=== PATIENT | female | born 1975 | race Caucasian/White ===

== ENCOUNTER 2016-12-18 15:39 | Emergency (ER) | payer BC, OTHER ==
[~2016-12-18] VITALS: Ht 160 cm; Wt 70.0 kg
[2016-12-18 15:44] VITALS: BP 145/75; PULSE 88; RESP 15; TEMP 98.3; O2SAT 100
[2016-12-18] MEDS ORDERED: SODIUM CHLOR 0.9% 1000 ML INJ 1,000 ML IV SCH (15:56)
[2016-12-18] MEDS ORDERED: FERR325T PO (15:58)
[2016-12-18] MEDS ORDERED: METO25TA6 PO (15:58)
[2016-12-18 16:18] LABS: AUTOMATED NEUTROPHIL # 12.6 TH/MM3 (1.8-7.7); BASOPHIL % 0.3 % (0.0-2.0); EOSINOPHIL % 0.1 % (0.0-4.0); HEMATOCRIT 37.8 % (35.0-46.0); HEMO FLAGS DIFF FINAL; LYMPH % 12.5 % (9.0-44.0); LYMPHOCYTE # 1.9 TH/MM3 (1.0-4.8); MEAN CELL VOLUME 96.5 FL (80.0-100.0); MEAN CORPUSCULAR HEMOGLOBIN 33.1 PG (27.0-34.0); MEAN CORPUSCULAR HGB CONC 34.3 % (32.0-36.0); MONO % 5.5 % (0.0-8.0); NEUT % 81.6 % (16.0-70.0); PLATELET COUNT 334 TH/MM3 (150-450); RED BLOOD COUNT 3.91 MIL/MM3 (4.00-5.30); RED CELL DISTRIBUTION WIDTH 13.7 % (11.6-17.2); WHITE BLOOD COUNT 15.4 TH/MM3 (4.0-11.0)
--- NOTE | 2016-12-18 16:36 | PD ---
HPI Chief Complaint: Complaint Time Seen by Provider: 16:32 Travel History International Travel<30 days: No Contact w/Intl Traveler<30days: No Traveled to known affect area: No History of Present Illness HPI 41-year-old female that presents to the ED for evaluation of hematuria. Per patient is started today. Per patient she woke up with some lower back pain and some pressure in her bladder which didn't think much of it. Per patient she went to [place] with family and when she was over there she noticed that she had to go to the bathroom a lot. Per patient she had to urinate. Per patient she started to note that she had some blood in her urine. Per patient she thought maybe was related to her. Although she will be 2 weeks early. Per patient she could've tamponade to see maybe double elbow that. Per patient she noted that after she what she still had bloods that she took the tampon off and she noticed that she had no blood in there. She noted again that when she urinated she had some blood. Last and she he there were pieces of blood. Per patient the blood seems to be getting better but she still has some. Per patient initially was more red blood now is more like documented flood. She denies any dysuria but she does state having some pressure and urgency. She denies any history of kidney stones. No history of UTIs. Denies any vaginal discharge or bleeding. No . No trauma. No history of cancer. Per patient the pain is not really painful more like an ache. Per patient is 2 out of 10. Denies any fevers, chills or sweats. No nausea or vomiting. PFSH Past Medical History Medical History: Denies Significant Hx ?: Not LMP: 12/03/2016 Social History Alcohol Use: No Tobacco Use: No Substance Use: No Allergies-Medications (Allergen,Severity, Reaction): Coded Allergies: No Known Allergies (Verified , 12/18/16) Reported Meds & Prescriptions Reported Meds & Active Scripts Active Pyridium (Phenazopyridine HCl) 100 Mg Tab 100 Mg PO Q8HR Cipro (Ciprofloxacin HCl) 500 Mg Tab 500 Mg PO BID [address] (Diclofenac Sodium) 75 Mg Tabdr 75 Mg PO BID PRN Reported Ferrous Sulfate 325 Mg Tab 325 Mg PO DAILY Metoprolol Succinate ER 24 HR (Metoprolol Succinate) 25 Mg Tab 12.5 Mg PO DAILY Review of Systems Except as stated in HPI: all other systems reviewed are Neg Physical Exam Narrative GENERAL: SKIN: Warm and dry. HEAD: Atraumatic. Normocephalic. EYES: Pupils equal and round. No scleral icterus. No injection or drainage. ENT: No nasal bleeding or discharge. Mucous membranes pink and moist. NECK: Trachea midline. No JVD. CARDIOVASCULAR: Regular rate and rhythm. No murmurs, S3, S4. RESPIRATORY: No accessory muscle use. Clear to auscultation. Breath sounds equal bilaterally. GASTROINTESTINAL: Abdomen soft, non-tender, nondistended. Hepatic and splenic margins not palpable. MUSCULOSKELETAL: Extremities without clubbing, cyanosis, or edema. No obvious deformities. No CVA tenderness. NEUROLOGICAL: Awake and alert. No obvious cranial nerve deficits. Motor grossly within normal limits. Five out of 5 muscle strength in the arms and legs. Normal speech. PSYCHIATRIC: Appropriate mood and affect; insight and judgment normal. Data Data Last Documented VS Vital Signs Date Time Temp Pulse Resp B/P Pulse Ox O2 Delivery O2 Flow Rate FiO2 12/18/16 15:44 98.3 88 15 145/75 100 Orders Urinalysis - C+S If Indicated (12/18/16 15:42) Ed Urine Pregnancytest Poc (12/18/16 15:48) Complete Blood Count With Diff (12/18/16 15:56) Basic Metabolic Panel (Bmp) (12/18/16 15:56) Ct Abd/Pel W/O Iv Contrast (12/18/16 15:56) Sodium Chlor 0.9% 1000 Ml Inj (Ns 1000 M (12/18/16 15:56) Urine Culture (12/18/16 15:41) Ciprofloxacin (Cipro) (12/18/16 17:15) Labs Laboratory Tests Test 12/18/16 12/18/16 15:41 16:03 Urine Color LIGHT-YELLOW Urine Turbidity CLEAR Urine pH 6.5 Urine Specific [place] 1.002 Urine Protein TRACE mg/dL Urine Glucose (UA) NEG mg/dL Urine Ketones NEG mg/dL Urine Occult Blood MOD Urine Nitrite NEG Urine Bilirubin NEG Urine Urobilinogen LESS THAN 2.0 MG/DL Urine Leukocyte Esterase MOD Urine RBC 1 /hpf Urine WBC 11 /hpf Urine Bacteria MOD /hpf Microscopic Urinalysis Comment CULTURE INDICATED White Blood Count 15.4 TH/MM3 Red Blood Count 3.91 MIL/MM3 Hemoglobin 12.9 GM/DL Hematocrit 37.8 % Mean Corpuscular Volume 96.5 FL Mean Corpuscular Hemoglobin 33.1 PG Mean Corpuscular Hemoglobin 34.3 % Concent Red Cell Distribution Width 13.7 % Platelet Count 334 TH/MM3 Mean Platelet Volume 7.5 FL Neutrophils (%) (Auto) 81.6 % Lymphocytes (%) (Auto) 12.5 % Monocytes (%) (Auto) 5.5 % Eosinophils (%) (Auto) 0.1 % Basophils (%) (Auto) 0.3 % Neutrophils # (Auto) 12.6 TH/MM3 Lymphocytes # (Auto) 1.9 TH/MM3 Monocytes # (Auto) 0.9 TH/MM3 Eosinophils # (Auto) 0.0 TH/MM3 Basophils # (Auto) 0.0 TH/MM3 CBC Comment DIFF FINAL Differential Comment Sodium Level 139 MEQ/L Potassium Level 3.5 MEQ/L Chloride Level 106 MEQ/L Carbon Dioxide Level 27.9 MEQ/L Anion Gap 5 MEQ/L Blood Urea Nitrogen 9 MG/DL Creatinine 0.79 MG/DL Estimat Glomerular Filtration 80 ML/MIN Rate Random Glucose 101 MG/DL Calcium Level 8.7 MG/DL MDM Medical Decision Making Medical Screen Exam Complete: Yes Emergency Medical Condition: Yes Medical Record Reviewed: Yes Interpretation(s) CBC & BMP Diagram 12/18/16 16:03 Urine did show blood as well as some bacteria and mucus is trace. Last Impressions Abdomen/Pelvis CT 12/18/16 1556 Signed Impressions: Service Date/Time: Sunday, December 18, 2016 16:29 - CONCLUSION: 1. No definite abnormality to explain the patient's right flank pain identified. Specifically , the appendix is normal and no renal stones are evident. Tenzin Song MD Differential Diagnosis Kidney stone versus hematuria versus pyelonephritis versus UTI versus cystitis Narrative Course 41-year-old female that presents to the ED for evaluation of hematuria. Patient was properly examined and was found to have signs and symptoms which appear to be consistent with possible kidney stone versus pyelonephritis. Labs and imaging ordered. IV fluids given. Labs and imaging showed deliverable sick as well as blood in the urine and signs of infection. CT was negative for acute specifically no stone or mass. At this time I do believe that this is likely infectious. Likely early pyonephritis from back pain. She can also already passed the stone and now she has an infection. Patient will be treated for this with Cipro. Patient was given first dose here. Patient was given pyridium and Cipro to help with symptoms. She will be given a prescription for diclofenac sodium for pain to use as needed. Close follow with PCP. See ED for any worsening symptoms. Patient was told results and agrees with plan. Diagnosis Primary Impression: Pyelonephritis Additional Impression: Hematuria Patient Instructions: General Instructions Additional Instructions: Take medications as prescribed. Follow-up with PCP. See ED if worsening symptoms. Drink plenty of fluids. Med/Other Pt SpecificInfo: Prescription(s) given Scripts Phenazopyridine (Pyridium)100 Mg [id number] Mg PO Q8HR #12 TAB Ref 0 Prov:Adarsh Noonan MD 12/18/16 Ciprofloxacin (Cipro)500 Mg [id number] Mg PO BID 10 Days Prov:Adarsh Noonan MD 12/18/[address] 75 Mg Tabdr75 Mg PO BID PRN (PAIN SCALE 1 TO 10) #20 TAB Prov:Adarsh Noonan MD 12/18/16 Disposition: 01 DISCHARGE HOME Condition: Stable Jem Srivastava Dec 18, 2016 16:36
[2016-12-18 16:44] LABS: BICARBONATE 27.9 MEQ/L (21.0-32.0); POTASSIUM 3.5 MEQ/L (3.5-5.1)
--- NOTE | 2016-12-18 16:57 | RADRPT ---
EXAM DATE/TIME: 12/18/2016 16:29 [facility] COMPARISON: No previous studies available for comparison. INDICATIONS : Low pelvic and right flank pain. ORAL CONTRAST: No oral contrast ingested. RADIATION DOSE: 14.36 CTDIvol (mGy) MEDICAL HISTORY : None documented. SURGICAL HISTORY : Inguinal hernia repair. Umbilical hernia repair. ENCOUNTER: Initial ACUITY: 1 day PAIN SCALE: 7/10 LOCATION: Right flank TECHNIQUE: Volumetric scanning of the abdomen and pelvis was performed. Using automated exposure control and ad justment of the mA and/or kV according to patient size, radiation dose was kept as low as reasonably achievable to obtain optimal diagnostic quality images. FINDINGS: LOWER LUNGS: The visualized lower lungs are clear. LIVER: Homogeneous density without lesion. There is no dilation of the biliary tree. No calcified gallston es. SPLEEN: Normal size without lesion. PANCREAS: Within normal limits. KIDNEYS: Normal in size and shape. There is no mass, stone, or hydronephrosis. ADRENAL GLANDS: Within normal limits. VASCULAR: There is no aortic aneurysm. BOWEL/MESENTERY: The stomach, small bowel, and colon demonstrate no acute abnormality. There is no free intraperitone al air or fluid. The appendix is visualized and is normal in appearance. ABDOMINAL WALL: Within normal limits. RETROPERITONEUM: There is no lymphadenopathy. BLADDER: No wall thickening or mass. REPRODUCTIVE: Within normal limits. INGUINAL: There is no lymphadenopathy or hernia. MUSCULOSKELETAL: Within normal limits for patient age. CONCLUSION: 1. No definite abnormality to explain the patient's right flank pain identified. Specifically, the ap pendix is normal and no renal stones are evident. Tenzin Song MD on December 18, 2016 at 16:50 Board Certified Radiologist. This report was verified electronically.
[2016-12-18 17:00] LABS: BACTERIA, URINE MOD /hpf; BLOOD, URINE MOD (NEG); COMMENT (UR) CULTURE INDICATED; CULTURE IF INDICATED CULTURE INDICATED; GLUCOSE,URINE NEG (NEG); KETONE, URINE NEG (NEG); NITRITE,URINE NEG (NEG); PH, URINE 6.5 (5.0-8.5); URINE COLOR LIGHT-YELLOW (YELLW/STRAW)
[2016-12-18] MEDS ORDERED: CIPROFLOXACIN 500 MG TAB PO ONE (17:15)
[2016-12-18] MEDS ORDERED: TRAM50TA PO (17:19)
[2016-12-18] MEDS ORDERED: PHEN0.4T PO (17:19)
[2016-12-18] MEDS ORDERED: CIPR-9 PO (17:19)
[2016-12-18] MEDS ORDERED: DICL75TA PO (17:19)
== END 2016-12-18 18:32 | disposition home or self-care (01) ==
LOC: NEPC 15:39
DX: N12 Tubulo-interstitial nephritis, not specified as acute or chronic (principal); R31.9 Hematuria, unspecified
CPT/HCPCS: 74176; 80048; 81001; 84703; 85025; 87086; 96360; 96361; 99284; J7030

== ENCOUNTER 2018-03-31 08:38 | Emergency (ER) | payer BC ==
[~2018-03-31] VITALS: Ht 160 cm; Wt 72.0 kg
[~2018-03-31 08:38] MED LIST: CIPR-9 PO; DICL75TA PO; FERR325T PO; METO1TAB42 PO; PHEN0.4T PO
[2018-03-31 08:44] VITALS: BP 162/80; PULSE 71; RESP 20; TEMP 97.5; O2SAT 100
[2018-03-31 09:22] LABS: HEMATOCRIT 32.7 % (35.0-46.0); HEMOGLOBIN 10.5 GM/DL (11.6-15.3); MEAN CELL VOLUME 78.9 FL (80.0-100.0); MEAN CORPUSCULAR HEMOGLOBIN 25.2 PG (27.0-34.0); MEAN CORPUSCULAR HGB CONC 31.9 % (32.0-36.0); MEAN PLATELET VOLUME 7.2 FL (7.0-11.0); PLATELET COUNT 452 TH/MM3 (150-450); RED BLOOD COUNT 4.15 MIL/MM3 (4.00-5.30); RED CELL DISTRIBUTION WIDTH 17.4 % (11.6-17.2); WHITE BLOOD COUNT 7.8 TH/MM3 (4.0-11.0)
[2018-03-31 09:36] LABS: BICARBONATE 26.8 MEQ/L (21.0-32.0); CALCIUM 9.3 MG/DL (8.5-10.1); CREATININE 0.66 MG/DL (0.50-1.00); PROTHROMBIN TIME - PATIENT 9.7 SEC (9.8-11.6)
--- NOTE | 2018-03-31 10:54 | RADRPT ---
EXAM DATE/TIME: 03/31/2018 09:41 [facility] COMPARISON: No previous studies available for comparison. INDICATIONS : Pelvic bleeding. MEDICAL HISTORY : Hypertension. Anemia. SURGICAL HISTORY : Cardiac catheterization. Hernia repair. ENCOUNTER: Initial ACUITY: 3 weeks PAIN SCORE: 0/10 LOCATION: Bilateral pelvis MEASUREMENTS: UTERUS: 10.8 x 5.4 x 6.0 cm ENDOMETRIAL STRIPE: 10 mm RIGHT OVARY: 2.1 x 1.3 x 2.2 cm LEFT OVARY: 4.6 x 2.3 x 3.0 cm FINDINGS: UTERUS: The myometrium has homogeneous echotexture without mass. RIGHT OVARY: Ovary contains no mass or significant cystic lesion. LEFT OVARY: Ovary contains no mass or significant cystic lesion. MISCELLANEOUS: No free fluid. CONCLUSION: 1. No acute findings. Small follicular cysts in the ovaries. Moses Schmitt MD on March 31, 2018 at 10:51 Board Certified Radiologist. This report was verified electronically.
--- NOTE | 2018-03-31 10:57 | PD ---
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 Reports last menstruation was approximately 4 months prior. Since then she has had menometrorrhagia with for the past 10 days or so heavy vaginal bleeding with clots. She reports using 10 super tampons daily. At times the bleeding soaks through the super tampons and pads. Overnight bleeding soaked the wounds in bed. She reports nausea and dizziness today. PFSH Past Medical History Anemia: Yes Cardiac Catheterization: Yes Hypertension: Yes ?: Not LMP: 03/07/18 Past Surgical History Abdominal Surgery: Yes (HERNIA REPAIR X 2) Social History Alcohol Use: Yes (OCCASSIONAL) Tobacco Use: No Substance Use: No Allergies-Medications (Allergen,Severity, Reaction): Coded Allergies: No Known Allergies (Verified , 12/18/16) Reported Meds & Prescriptions Reported Meds & Active Scripts Active Medroxyprogesterone Acetate 10 Mg Tab 10 Mg PO DAILY Start day 16 Pyridium (Phenazopyridine HCl) 100 Mg Tab 100 Mg PO Q8HR Cipro (Ciprofloxacin HCl) 500 Mg Tab 500 Mg PO BID [address] (Diclofenac Sodium) 75 Mg Tabdr 75 Mg PO BID PRN Reported Metoprolol Succinate ER 24 HR (Metoprolol Succinate) 25 Mg Tab 12.5 Mg PO DAILY Review of Systems Except as stated in HPI: all other systems reviewed are Neg General / Constitutional: No: Fever Physical Exam Narrative GENERAL: 42-year-old female pleasant well-nourished well-developed Vital Signs Date Time Temp Pulse Resp B/P (MAP) Pulse Ox O2 Delivery O2 Flow Rate FiO2 03/31/18 08:44 97.5 71 20 162/80 (107) 100 SKIN: Warm and dry. HEAD: Atraumatic. Normocephalic. EYES: Pupils equal and round. No scleral icterus. No injection or drainage. ENT: No nasal bleeding or discharge. Mucous membranes pink and moist. NECK: Trachea midline. No JVD. CARDIOVASCULAR: Regular rate and rhythm. RESPIRATORY: No accessory muscle use. Clear to auscultation. Breath sounds equal bilaterally. GASTROINTESTINAL: Minimal tenderness in suprapubic abdomen and left lower quadrant. MUSCULOSKELETAL: Extremities without clubbing, cyanosis, or edema. No obvious deformities. NEUROLOGICAL: Awake and alert. No obvious cranial nerve deficits. Motor grossly within normal limits. Five out of 5 muscle strength in the arms and legs. Normal speech. PSYCHIATRIC: Appropriate mood and affect; insight and judgment normal. Data Data Last Documented VS Vital Signs Date Time Temp Pulse Resp B/P (MAP) Pulse Ox O2 Delivery O2 Flow Rate FiO2 03/31/18 11:53 82 133/68 (89) 100 03/31/18 08:44 97.5 20 Orders Orders Cbc No Diff, Includes Plts (03/31/18 09:02) Basic Metabolic Panel (Bmp) (03/31/18 09:02) Act Partial Throm Time (Ptt) (03/31/18 09:02) Prothrombin Time / Inr (Pt) (03/31/18 09:02) Us Pelvis Comp W Transvaginal (03/31/18 ) Urinalysis - C+S If Indicated (03/31/18 10:57) Electrocardiogram (03/31/18 ) Ed Discharge Order (03/31/18 11:40) Labs Laboratory Tests Test 03/31/18 09:05 03/31/18 11:00 White Blood Count 7.8 TH/MM3 Red Blood Count 4.15 MIL/MM3 Hemoglobin 10.5 GM/DL Hematocrit 32.7 % Mean Corpuscular Volume 78.9 FL Mean Corpuscular Hemoglobin 25.2 PG Mean Corpuscular Hemoglobin Concent 31.9 % Red Cell Distribution Width 17.4 % Platelet Count 452 TH/MM3 Mean Platelet Volume 7.2 FL Prothrombin Time 9.7 SEC Prothromb Time International Ratio 1.0 RATIO Activated Partial Thromboplast Time 24.5 SEC Blood Urea Nitrogen 10 MG/DL Creatinine 0.66 MG/DL Random Glucose 96 MG/DL Calcium Level 9.3 MG/DL Sodium Level 139 MEQ/L Potassium Level 4.6 MEQ/L Chloride Level 104 MEQ/L Carbon Dioxide Level 26.8 MEQ/L Anion Gap 8 MEQ/L Estimat Glomerular Filtration Rate 98 ML/MIN Urine Color COLORLESS Urine Turbidity CLEAR Urine pH 6.5 Urine Specific [place] 1.003 Urine Protein NEG mg/dL Urine Glucose (UA) NEG mg/dL Urine Ketones NEG mg/dL Urine Occult Blood LARGE Urine Nitrite NEG Urine Bilirubin NEG Urine Urobilinogen LESS THAN 2.0 MG/DL Urine Leukocyte Esterase NEG Urine RBC 2 /hpf Urine WBC LESS THAN 1 /hpf Urine Squamous Epithelial Cells <1 /hpf Urine Bacteria OCC /hpf Microscopic Urinalysis Comment CULT NOT INDICATED MDM Medical Decision Making Medical Screen Exam Complete: Yes Emergency Medical Condition: Yes Medical Record Reviewed: Yes Differential Diagnosis Anemia, cyst, incarcerated umbilical hernia, intraperitoneal hemorrhage Narrative Course CBC & BMP Diagram 03/31/18 09:05 Calcium Level 9.3 US shows no acute abnormality Pt reassessed at 1100. Results were discussed. Umbilical hernia examined: no defect in umbilical wall, no tenderness. Pt reiterated and augmented dizziness as a complaint. EKG added on. UA: no UTI EKG normal sinus, no ischemia d/w Dr Rodriguez, medroxyprogesterone prescription, call Dr. Buckner in the morning for appointment discharge Diagnosis Primary Impression: Vaginal bleeding Additional Impressions: Microcytic anemia Dizziness History of umbilical hernia repair Referrals: Jimmy Buckner MD call for appointment CALL TO MAKE AN APPOINTMENT FOR TOMORROW Med/Other Pt SpecificInfo: Prescription(s) given Scripts Medroxyprogesterone Acetate (Medroxyprogesterone Acetate) 10 Mg Tab 10 MG PO DAILY for Uterine bleeding, #10 TAB 0 Refills Start day 16 Prov: Tenzin Troy MD 03/31/18 Disposition: 01 DISCHARGE HOME Condition: Stable Tenzin Troy MD March 31, 2018 10:57
[2018-03-31] MEDS ORDERED: MEDR10TA7 PO (11:31)
[2018-03-31 11:35] LABS: BACTERIA, URINE OCC /hpf; BILIRUBIN, URINE NEG (NEG); BLOOD, URINE LARGE (NEG); GLUCOSE,URINE NEG (NEG); KETONE, URINE NEG (NEG); NITRITE,URINE NEG (NEG); PH, URINE 6.5 (5.0-8.5); SQUAMOUS EPITHELIAL CELL URINE <1 /hpf (0-5); URINE COLOR COLORLESS (YELLW/STRAW); URINE LEUKOCYTE ESTERASE NEG (NEG)
[2018-03-31 11:53] VITALS: BP 133/68
--- NOTE | 2018-04-02 08:53 | EKG ---
Date Performed: 03/31/2018 Time Performed: 11:11:52 PTAGE: 42 years EKG: Sinus rhythm NORMAL ECG NO PREVIOUS TRACING DOCTOR: Twyla Braun Interpretating Date/Time 04/02/2018 08:48:35
== END 2018-03-31 12:06 | disposition home or self-care (01) ==
LOC: NEPE 08:38
DX: N93.9 Abnormal uterine and vaginal bleeding, unspecified (principal); N83.209 Unspecified ovarian cyst, unspecified side; D50.9 Iron deficiency anemia, unspecified; R42 Dizziness and giddiness; K42.9 Umbilical hernia without obstruction or gangrene; R11.0 Nausea; I10 Essential (primary) hypertension; Z79.899 Other long term (current) drug therapy
CPT/HCPCS: 76830; 76856; 80048; 81001; 85027; 85610; 85730; 93005; 99285

== ENCOUNTER 2018-04-30 04:30 | Observation (INO) | payer BC ==
[2018-04-30] VITALS (7 sets, daily range): BP systolic 115–147; BP diastolic 59–85; PULSE 68–89; RESP 16–18; TEMP 98.1–98.9; O2SAT 99–100
[~2018-04-30 04:30] MED LIST changes: -FERR325T PO; +MEDR10TA7 PO
[2018-04-30] MEDS ORDERED: FERR325T18 PO (04:57)
[2018-04-30 05:26] LABS: AUTOMATED NEUTROPHIL # 8.5 TH/MM3 (1.8-7.7); BASOPHIL % 0.2 % (0.0-2.0); EOSINOPHIL # 0.1 TH/MM3 (0-0.4); EOSINOPHIL % 1.1 % (0.0-4.0); HEMATOCRIT 33.9 % (35.0-46.0); LYMPH % 15.4 % (9.0-44.0); LYMPHOCYTE # 1.7 TH/MM3 (1.0-4.8); MEAN CELL VOLUME 87.5 FL (80.0-100.0); MEAN CORPUSCULAR HEMOGLOBIN 28.5 PG (27.0-34.0); MEAN CORPUSCULAR HGB CONC 32.5 % (32.0-36.0); MEAN PLATELET VOLUME 7.2 FL (7.0-11.0); MONO % 7.4 % (0.0-8.0); MONOCYTE # 0.8 TH/MM3 (0-0.9); NEUT % 75.9 % (16.0-70.0); PLATELET COUNT 334 TH/MM3 (150-450); RED BLOOD COUNT 3.87 MIL/MM3 (4.00-5.30); RED CELL DISTRIBUTION WIDTH 23.3 % (11.6-17.2); WHITE BLOOD COUNT 11.2 TH/MM3 (4.0-11.0)
[2018-04-30] MEDS ORDERED: oxyCODONE/ACETAMINOPHEN 5 MG/325 MG TAB PO ONE (05:45)
[2018-04-30 05:46] LABS: PROTHROMBIN TIME - PATIENT 9.9 SEC (9.8-11.6)
[2018-04-30 05:56] LABS: ALBUMIN 3.3 GM/DL (3.4-5.0); AST (GOT) 11 U/L (15-37); BICARBONATE 23.6 MEQ/L (21.0-32.0); BLOOD UREA NITROGEN 6 MG/DL (7-18); CALCIUM 8.4 MG/DL (8.5-10.1); CHLORIDE 108 MEQ/L (98-107); CREATININE 0.68 MG/DL (0.50-1.00); GLOMERULAR FILTRATION RATE 95 ML/MIN (>89); GLUCOSE,RANDOM 106 MG/DL (74-106); SODIUM (NA) 141 MEQ/L (136-145)
[2018-04-30 05:57] LABS: ALT (GPT) 17 U/L (10-53)
[2018-04-30 05:59] LABS: ALKALINE PHOSPHATASE 68 U/L (45-117); TOTAL BILIRUBIN ADULT 0.3 MG/DL (0.2-1.0); TOTAL PROTEIN 6.9 GM/DL (6.4-8.2)
--- NOTE | 2018-04-30 06:47 | PD ---
HPI . 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 now she is having bleeding returning in spite of still being on the medroxyprogesterone 10 mg p.o. daily she is having contractions she seen clots she is seeing grayish whitish tissue in the clots and is very concerning to her the clots as well as the pain that she is experiencing and the fact that she is rebleeding. In February she bled steadily for a month and came in she was mildly anemic with her hemoglobin at 10.5 today she is returning her hemoglobin is 11 even after a month of decreasing the bleeding now the bleeding is increasing once again Dr. Buckner was the doctor following her patient has no known history of endometrial cancer she reports that her mother became perimenopausal around. Patient is scheduled for a biopsy of endometrium on the 18 of this month which is 8 days from this date of dictation. I call and speak with who suggests that I start Premarin IV and Dr Zarate will come bedside a 9AM PFSH Past Medical History Anemia: Yes Cardiac Catheterization: Yes Hypertension: Yes ?: Not Past Surgical History Abdominal Surgery: Yes (HERNIA REPAIR X 2) Social History Alcohol Use: Yes (OCCASSIONAL) Tobacco Use: No Substance Use: No Allergies-Medications (Allergen,Severity, Reaction): Coded Allergies: No Known Allergies (Verified Adverse Reaction, Unknown, 04/30/18) Reported Meds & Prescriptions Reported Meds & Active Scripts Active Medroxyprogesterone Acetate 10 Mg Tab 10 Mg PO DAILY Start day 16 Reported Ferrous Sulfate 325 Mg (65 Mg Iron) Tablet 325 Mg PO DAILY Metoprolol Succinate ER 24 HR (Metoprolol Succinate) 25 Mg Tab 12.5 Mg PO DAILY Review of Systems Except as stated in HPI: all other systems reviewed are Neg Genitourinary: Positive: Dysmenorrhea, Menorrhagia, Metorrhagia, Vaginal Bleeding Physical Exam Narrative GENERAL: awake alert non toxic not pallid SKIN: Warm and dry. HEAD: Atraumatic. Normocephalic. EYES: Pupils equal and round. No scleral icterus. No injection or drainage. ENT: No nasal bleeding or discharge. Mucous membranes pink and moist. NECK: Trachea midline. No JVD. CARDIOVASCULAR: Regular rate and rhythm. RESPIRATORY: No accessory muscle use. Clear to auscultation. Breath sounds equal bilaterally. GASTROINTESTINAL: Abdomen lower abdominal pain suprapubic , PELVIC copious blood and clots in vault No CMT . MUSCULOSKELETAL: Extremities without clubbing, cyanosis, or edema. No obvious deformities. NEUROLOGICAL: Awake and alert. No obvious cranial nerve deficits. Motor grossly within normal limits. Five out of 5 muscle strength in the arms and legs. Normal speech. PSYCHIATRIC: Appropriate mood and affect; insight and judgment normal. Data Data Last Documented VS Vital Signs Date Time Temp Pulse Resp B/P (MAP) Pulse Ox O2 Delivery O2 Flow Rate FiO2 04/30/18 08:21 72 18 143/63 (89) 100 Room Air 04/30/18 04:40 98.9 Orders Orders Complete Blood Count With Diff (04/30/18 05:02) Comprehensive Metabolic Panel (04/30/18 05:02) Prothrombin Time / Inr (Pt) (04/30/18 05:02) Oxycodone-Acetamin 5-325 Mg (Percocet (04/30/18 05:45) Estrogens Conjugated Inj (Premarin Inj) (04/30/18 08:00) Place In Observation (04/30/18 ) Code Status (04/30/18 11:24) Vital Signs (Adult) Q4H (04/30/18 11:24) Activity Oob Ad Kirti (04/30/18 11:24) ^ Monitor (04/30/18 11:24) Diet Regular Basic (04/30/18 Lunch) Complete Blood Count With Diff (05/01/18 06:00) Comprehensive Metabolic Panel (05/01/18 06:00) Thyroid Stimulating Hormone (05/01/18 06:00) Estrogens Conjugated Inj (Premarin Inj) (04/30/18 11:30) Ondansetron Inj (Zofran Inj) (04/30/18 11:30) Acetamin-Hydrocod 325-5 Mg ([place] 5-325 (04/30/18 11:30) Admit Order (Ed Use Only) (04/30/18 11:28) Labs Laboratory Tests Test 04/30/18 05:10 White Blood Count 11.2 TH/MM3 Red Blood Count 3.87 MIL/MM3 Hemoglobin 11.0 GM/DL Hematocrit 33.9 % Mean Corpuscular Volume 87.5 FL Mean Corpuscular Hemoglobin 28.5 PG Mean Corpuscular Hemoglobin Concent 32.5 % Red Cell Distribution Width 23.3 % Platelet Count 334 TH/MM3 Mean Platelet Volume 7.2 FL Neutrophils (%) (Auto) 75.9 % Lymphocytes (%) (Auto) 15.4 % Monocytes (%) (Auto) 7.4 % Eosinophils (%) (Auto) 1.1 % Basophils (%) (Auto) 0.2 % Neutrophils # (Auto) 8.5 TH/MM3 Lymphocytes # (Auto) 1.7 TH/MM3 Monocytes # (Auto) 0.8 TH/MM3 Eosinophils # (Auto) 0.1 TH/MM3 Basophils # (Auto) 0.0 TH/MM3 CBC Comment DIFF FINAL Differential Comment Prothrombin Time 9.9 SEC Prothromb Time International Ratio 1.0 RATIO Blood Urea Nitrogen 6 MG/DL Creatinine 0.68 MG/DL Random Glucose 106 MG/DL Total Protein 6.9 GM/DL Albumin 3.3 GM/DL Calcium Level 8.4 MG/DL Alkaline Phosphatase 68 U/L Aspartate Amino Transf (AST/SGOT) 11 U/L Alanine Aminotransferase (ALT/SGPT) 17 U/L Total Bilirubin 0.3 MG/DL Sodium Level 141 MEQ/L Potassium Level 3.8 MEQ/L Chloride Level 108 MEQ/L Carbon Dioxide Level 23.6 MEQ/L Anion Gap 9 MEQ/L Estimat Glomerular Filtration Rate 95 ML/MIN [facility] Medical Decision Making Medical Screen Exam Complete: Yes Emergency Medical Condition: Yes Medical Record Reviewed: Yes Differential Diagnosis romi-menopausal bleeding , hormonal disregulation, estrogen or progesterone deficiency , , endometrial cancer Narrative Course pelvic exam reveals clots and blood red in vault, no CMT hgb 11 was 10.5 2 weeks ago . 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
[2018-04-30] MEDS: ESTROGENS CONJUGATED 25 MG/5 ML VIAL IV PUSH SCH ×8 (08:04→23:30)
--- NOTE | 2018-04-30 11:24 | PD ---
History of Present Illness Date Seen: Apr 30, 2018 Time Seen: 11:16 History of Present Illness 42 yo mwf P2 with LMP unclear due to abnormal uterine bleeding despite scheduled provera. Has been to ED once before and recent TVS unremarkable. Returned early am with heavy bleeding, clots and cramping 9/10 perceived. Has minimized now with one dose IV estrogen and cramps subsided but not returning. Frightened this will again worsen and agrees to additional doses of premarin. No history of endometrial hyperplasia, fibroids, polyps or bleeding disorders. No recent infections. Has been told to avoid OCPs due to strong family history of CVD. Strongly desires definititive therapy (hysterectomy) PHM No chornic or systemic illnesses Hashad cardiac work up including catheterization for chest pain. no allergies meds: toprol and provera PSH hernia repair OB Hx two term SVDs contraception vasectomy (beta neg) Exam: general exam per Dr. Tillman AVSS abdomen benign pelvic perineum normal uterus AV, AF not enlarged os open dark brown thin blood on exam Imp: AUB likely physiologic as opposed to polyp, fibroid or hyperplasia endometrial biopsy pending in office next week responding to IV estrogen will keep overnight and repeat estrogen IV, pain meds as needed and recheck labs in am Gris Younger MD Apr 30, 2018 11:24
[2018-04-30] MEDS ORDERED: ONDANSETRON HCL 4 MG/2 ML VIAL IV PUSH PRN (11:30)
[2018-04-30] MEDS: ONDANSETRON ODT 4 MG TAB PO PRN ×2 (14:52→20:17)
[2018-04-30] MEDS: ACETAMINOPHEN/HYDROcodone 325 MG/5 MG TAB PO PRN ×2 (16:00→20:17)
[2018-04-30] MEDS ORDERED: LORazepam 2 MG/ML VIAL IV PRN (21:30)
[2018-04-30] MEDS: METOCLOPRAMIDE HCL 10 MG/2 ML VIAL IV PRN (21:42)
[2018-05-01] MEDS: ESTROGENS CONJUGATED 25 MG/5 ML VIAL IV PUSH SCH ×6 (01:40→12:00)
[2018-05-01 04:11] VITALS: BP 128/60; PULSE 85; RESP 16; TEMP 98.5; O2SAT 99
[2018-05-01] MEDS: METOCLOPRAMIDE HCL 10 MG/2 ML VIAL IV PRN (05:42)
[2018-05-01 06:23] LABS: BASOPHIL # 0.1 TH/MM3 (0-0.2); BASOPHIL % 0.5 % (0.0-2.0); EOSINOPHIL # 0.1 TH/MM3 (0-0.4); EOSINOPHIL % 0.8 % (0.0-4.0); HEMATOCRIT 33.2 % (35.0-46.0); HEMOGLOBIN 10.7 GM/DL (11.6-15.3); LYMPH % 22.3 % (9.0-44.0); LYMPHOCYTE # 3.2 TH/MM3 (1.0-4.8); MEAN CELL VOLUME 87.3 FL (80.0-100.0); MEAN CORPUSCULAR HEMOGLOBIN 28.2 PG (27.0-34.0); MEAN CORPUSCULAR HGB CONC 32.3 % (32.0-36.0); MEAN PLATELET VOLUME 7.6 FL (7.0-11.0); MONO % 6.3 % (0.0-8.0); MONOCYTE # 0.9 TH/MM3 (0-0.9); NEUT % 70.1 % (16.0-70.0); PLATELET COUNT 424 TH/MM3 (150-450); RED CELL DISTRIBUTION WIDTH 22.9 % (11.6-17.2); WHITE BLOOD COUNT 14.3 TH/MM3 (4.0-11.0)
[2018-05-01 06:47] LABS: ALBUMIN 3.4 GM/DL (3.4-5.0); AST (GOT) 15 U/L (15-37); BLOOD UREA NITROGEN 8 MG/DL (7-18); CALCIUM 8.7 MG/DL (8.5-10.1); CHLORIDE 105 MEQ/L (98-107); CREATININE 0.78 MG/DL (0.50-1.00); GLOMERULAR FILTRATION RATE 81 ML/MIN (>89); GLUCOSE,RANDOM 82 MG/DL (74-106); SODIUM (NA) 141 MEQ/L (136-145)
[2018-05-01 06:48] LABS: ALT (GPT) 17 U/L (10-53)
[2018-05-01 06:59] LABS: ALKALINE PHOSPHATASE 72 U/L (45-117); TOTAL BILIRUBIN ADULT 0.7 MG/DL (0.2-1.0); TOTAL PROTEIN 7.2 GM/DL (6.4-8.2)
[2018-05-01 07:30] VITALS: BP 130/65; PULSE 91; RESP 18; TEMP 98.6; O2SAT 98
[2018-05-01] MEDS: ONDANSETRON ODT 4 MG TAB PO PRN (08:16)
[2018-05-01] MEDS: ACETAMINOPHEN/HYDROcodone 325 MG/5 MG TAB PO PRN (08:18)
[2018-05-01 11:23] VITALS: BP 115/60; PULSE 77; RESP 18; TEMP 98.6; O2SAT 98
--- NOTE | 2018-05-01 13:04 | HHI.PR ---
Subjective Remarks bleeding has diminished significantly cramping is gone estradiol IV caused N, V but no longer receiving Objective Vital Signs Vital Signs Date Time Temp Pulse Resp B/P (MAP) Pulse Ox O2 Delivery O2 Flow Rate FiO2 05/01/18 11:23 98.6 77 18 115/60 (78) 98 05/01/18 07:30 98.6 91 18 130/65 (86) 98 05/01/18 04:11 98.5 85 16 128/60 (82) 99 04/30/18 23:59 98.5 73 16 115/59 (77) 99 04/30/18 19:43 98.5 74 16 118/66 (83) 100 04/30/18 16:47 98.1 72 18 135/68 (90) 99 Result Diagram: 05/01/18 0536 05/01/18 0536 A/P Assessment and Plan HD 2 menometrorhagia resolving with IV estradio for 18 hours and ready for discharge on her provera with zofran for nausea and follow up with Dr. Buckner Hb stable sonogram reassuring home now Gris Younger MD May 01, 2018 13:04
[2018-05-01] MEDS ORDERED: ONDA4TAB7 PO (13:05)
--- NOTE | 2018-05-01 13:05 | HHI.DCPOC ---
Discharge Care Plan Report Symptoms to Your Doctor -Temperature above 100.5 degrees -Redness, of incision or excessive or foul smelling drainage -Unusual pain or calf pain -Increased vaginal bleeding -Painful or difficulty urinating -Feelings of extreme sadness or anxiety after 2 weeks Goals to Promote Your Health * To prevent worsening of your condition and complications * To maintain your health at the optimal level Directions to Meet Your Goals Take your medications as prescribed Follow your dietary instruction Follow activity as directed Ensure plenty of rest for recovery Drink fluids for hydration Keep your appointments as scheduled Take your immunizations and boosters as scheduled If your symptoms worsen call your PCP, if no PCP go to Urgent Care Center or Emergency Room Smoking is Dangerous to Your Health. Avoid second hand smoke Call the 24-hour crisis hotline for domestic abuse at Gris Younger MD May 01, 2018 13:05
== END 2018-05-01 14:57 | disposition home or self-care (01) ==
LOC: NEPE 04:30 → NEDA 11:34 → NEPGCP 12:23
PROVIDERS: ADMIT Obstetrics & Gynecology; ATTEND Obstetrics & Gynecology
DX: N92.0 Excessive and frequent menstruation with regular cycle (principal); R10.33 Periumbilical pain; I10 Essential (primary) hypertension; Z79.899 Other long term (current) drug therapy
CPT/HCPCS: 80053; 84443; 85025; 85610; 96374; 96375; 96376; 99285; G0378; J2765; J1410